=== PATIENT | male | born 1935 | race Caucasian/White ===

== ENCOUNTER 2016-08-26 08:43 | Emergency (ER) | payer MEDICARE, OTHER ==
[2016-08-26 09:33] LABS: BASOPHIL 0.7 % (0-2); EOSINOPHIL 2.8 % (0-7); HCT 46.7 % (42.0-52.0); HGB 15.9 g/dl (13.2-18.0); LYMPHOCYTE 15.1 % (15-48); MCH 32.6 pg (25.0-31.0); MCV 95.9 fL (78.0-100.0); MONOCYTE 7.9 % (0-12); MPV 10.2 fL (6.0-9.5); NEUTROPHIL 73.5 % (41-80); PLT 218 K/uL (150-400); RBC 4.87 M/uL (4.70-6.00); RDW 13.8 % (11.5-14.0); WBC 7.6 K/uL (4.0-10.5)
[2016-08-26 09:47] LABS: ALBUMIN 4.2 g/dL (3.4-4.8); BILIRUBIN - TOTAL 0.8 mg/dL (0.1-1.0); CREATININE 0.8 mg/dL (0.7-1.2); POTASSIUM 3.8 mmol/L (3.5-5.1); TOTAL PROTEIN 7.2 g/dL (6.4-8.3)
[2016-08-26 11:31] LABS: BILIRUBIN NEGATIVE (NEGATIVE); BLOOD NEGATIVE Ery/uL (NEGATIVE); CLARITY CLEAR (CLEAR); COLOR YELLOW (YELLOW); GLUCOSE (U) NORMAL (NORMAL); KETONE (U) TRACE mg/dL (NEGATIVE); LEUKOCYTES NEGATIVE Leu/uL (NEGATIVE); NITRITE NEGATIVE (NEGATIVE); PROTEIN NEGATIVE (NEGATIVE); SPECIFIC GRAVITY 1.015 (1.001-1.030); UROBILINOGEN 0.2 mg/dL (0.2-1.0); pH 7.5 (5.0-9.0)
== END 2016-08-26 12:55 | disposition home or self-care (01) ==
LOC: FER 08:43
PROVIDERS: Emergency Medicine
DX: R42 Dizziness and giddiness (principal); R11.0 Nausea; I25.10 Atherosclerotic heart disease of native coronary artery without angina pectoris; I11.9 Hypertensive heart disease without heart failure; N40.0 Benign prostatic hyperplasia without lower urinary tract symptoms; Z88.1 Allergy status to other antibiotic agents; Z88.5 Allergy status to narcotic agent; Z79.899 Other long term (current) drug therapy; Z98.890 Other specified postprocedural states
CPT/HCPCS: 36415; 80053; 81003; 84484; 85025; 93005; J2405